=== PATIENT | male | born 1995 | race Caucasian/White ===

== ENCOUNTER 2020-07-22 14:09 | Emergency (ER) | payer SELFPAY ==
[~2020-07-22] VITALS: Ht 160 cm; Wt 73.5 kg
[2020-07-22 14:17] VITALS: BP 156/94
--- NOTE | 2020-07-22 14:17 | NUR ---
PT AMBULATED TO BED 04
--- NOTE | 2020-07-22 14:23 | NUR ---
24 YO M BIB SELF C/O RIGHT KNEE PAIN AND SWELLING SINCE YDAY. (+)ITCHINESS (-)FEVER. PT TOOK IBUPROFEN WHICH PROVIDED TEMPORARY RELIEF. UPON INSPECTION, RIGHT KNEE WITH PINPOINT WOUND AND A SCAB ~4CM. AAOX4, PERRL. LUNGS CLEAR BL, BREATHING UNLABORED; HR EVEN AND REGULAR, BL PERIPHERAL PULSES PRESENT; BPT STATES 8/10 PAIN AT THIS TIME; VSS; PATIENT POSITIONED FOR COMFORT; HOB ELEVATED; BEDRAILS UP X2; BED DOWN. PMH: NONE NKA
--- NOTE | 2020-07-22 15:04 | NUR ---
KRISTINA Daniel is evaluating the patient at bedside.
[2020-07-22] MEDS ORDERED: IBUPROFEN 600 MG TAB PO SCH (15:15)
[2020-07-22] MEDS ORDERED: cefTRIAXone 1,000 MG in LIDOCAINE MPF 1% 2.1 ML INJ SCH (15:15)
[2020-07-22] MEDS ORDERED: cefTRIAXone 1,000 MG VIAL ONE (15:25)
[2020-07-22] MEDS ORDERED: LIDOCAINE MPF 1% 5 ML ONE (15:25)
[2020-07-22 15:37] VITALS: BP 156/94
== END 2020-07-22 15:36 | disposition home or self-care (01) ==
LOC: MED 14:09
DX: L03.115 Cellulitis of right lower limb (principal); R03.0 Elevated blood-pressure reading, without diagnosis of hypertension; F17.210 Nicotine dependence, cigarettes, uncomplicated
CPT/HCPCS: 99283; J0696; J2001